=== PATIENT | male | born 1960 | race Caucasian/White ===

== ENCOUNTER 2019-06-06 09:47 | Emergency (ER) | payer OTHER, SELFPAY ==
[2019-06-06 10:00] VITALS: BP 152/95; PULSE 96; RESP 16; TEMP 36.7; O2SAT 99
--- NOTE | 2019-06-06 10:20 | ED.EYEPROB ---
HPI - Eye Problem General Chief complaint: Eye Problems Stated complaint: Pos pink eye Time Seen by Provider: 06/06/19 10:20 Source: patient Mode of arrival: ambulatory Limitations: no limitations History of Present Illness HPI Narrative: Miguel Echeverria is a 59 yo male with PMH of high cholesterol who comes to express care with left eye redness x24 hours Related Data Allergies Allergy/AdvReac Type Severity Reaction Status Date / Time oxycodone Allergy Unknown HIVES Verified 04/12/19 08:32 Review of Systems Review of Systems: Narrative: CONSTITUTIONAL: Denies fever, chills, sweats. EYES: Denies visual changes, has redness, minimal discharge. ENT: Denies rhinorrhea, congestion, sore throat, otalgia. CARDIOVASCULAR: Denies chest pain, palpitations, edema. RESPIRATORY: Denies dyspnea, wheezing, cough GASTROINTESTINAL: Denies abdominal pain, nausea, vomiting, diarrhea. GENITOURINARY: Denies dysuria, hematuria, abnormal discharge SKIN: Denies rash or itching. NEUROLOGIC: Denies numbness, or focal weakness. PSYCHIATRIC: Denies anxiety or depression. PMFSH Past Medical History Medical History GERD without esophagitis Multiple fractures of ribs, bilateral, sequela Family History Family History (Updated 06/06/19 @ 10:30 by Kyara Krishnan CNP) Other No active medical problems Social History Social History Smoking status: Former smoker Alcohol intake: current Comments At time of signature, I agree with nursing past medical, surgical, social and family history. There is no relevant family history pertinent to the presenting complaint. Exam Narrative: Exam Narrative: GENERAL: This is a well-nourished, well-developed patient, in no apparent distress. HEAD: normocephalic, atraumatic. EYES: Sclera clear/white on right ; left mildly injected. Minimal photosensitivity vision is grossly intact. EARS: External ears normal, . Hearing grossly intact. NOSE: External nose normal with no obvious nasal discharge, nares without redness, no rhinorrhea. THROAT: Mucous membranes moist, NECK: Neck supple, non-tender without lymphadenopathy, masses or thyromegaly. CARDIOVASCULAR: Regular rate and rhythm without murmurs, gallops, or rubs. RESPIRATORY: Clear to auscultation. Breath sounds equal bilaterally. No wheezes, rales, or rhonchi. GASTROINTESTINAL: Abdomen soft, SKIN: warm, intact with no suspicious lesions or rash, good texture and turgor. NEURO: awake, alert, and oriented to person, place and time. There were no obvious focal neurologic abnormalities. Steady gait EXTREMITIES: Normal range of motion. BACK: Nontender . Course Course Emergency Course: Started onpolymixin eye drops Discussed handwashing and treatment of the next 24-hour Vital Signs Vital signs: Vital Signs Temperature 98.1 F 06/06/19 10:00 Pulse Rate 96 06/06/19 10:00 Respiratory Rate 16 06/06/19 10:00 Blood Pressure 152/95 H 06/06/19 10:00 Pulse Oximetry 99 06/06/19 10:00 Temperature 98.1 F 06/06/19 10:00 Pulse Rate 96 06/06/19 10:00 Respiratory Rate 16 06/06/19 10:00 Blood Pressure 152/95 H 06/06/19 10:00 Pulse Oximetry 99 06/06/19 10:00 MDM - Eye Problem Differential Diagnosis Differential diagnosis: Likely corneal abrasion, conjunctivitis and other Discharge Plan Discharge Clinical Impression: Bacterial conjunctivitis Patient Disposition: Home, Self-Care Condition: Stable Instructions: Antibiotic Form, Conjunctivitis (ED) Prescriptions: New bacitracin-polymyxin B 500-10,000 unit/gram ointment 1 applic EACH EYE 4-6XD 10 Days Qty: 5 RF: 0 No Action atorvastatin 40 mg tablet 40 mg PO DAILY Qty: 60 RF: 0 Follow-up/Referrals: Reg Goss MD [Primary Care Provider] - Stand Alone Forms: Work/School Release IP Time of Disposition: 10:36 Discharge Date
== END 2019-06-06 10:38 | disposition home or self-care (01) ==
PROVIDERS: Emergency Provider Nurse Practitioner; PCP Family Medicine
DX: H10.9 Unspecified conjunctivitis (principal); K21.9 Gastro-esophageal reflux disease without esophagitis; Z87.891 Personal history of nicotine dependence
CPT/HCPCS: 99213; G0463

== ENCOUNTER → 2020-09-11 15:56 | Outpatient (CLI) | payer OTHER, SELFPAY ==
--- NOTE | ~2020-09-11 | US_ITS ---
US axilla LT DATE: 09/11/2020 16:14 INDICATION: Left axillary mass TECHNIQUE: Real-time and color flow imaging of the left axillary soft tissues COMPARISON: None FINDINGS: There is question of an approximately 2.2 x 3.8 cm or greater oval hyperechoic area within the left axillary soft tissues, possibly a lipoma. The sonographic findings are not conclusive. Consi john CT thorax with attention to the left axilla, with skin marker over the area of clinical complaint . A benign appearing 7.3 x 16 mm lymph node is identified in the left axilla. IMPRESSION: Possible left axillary lipoma; consider CT correlation with skin marker over the area of clinical complaint Reviewed, dictated and finalized at [facility] Reviewed, dictated and finalized at [facility]. IMPRESSION: Possible left axillary lipoma; consider CT correlation with skin ma rker over the area of clinical complaint
== END ==
PROVIDERS: PCP Family Medicine; Visit Provider Nurse Practitioner Family
DX: M79.89 Other specified soft tissue disorders (principal)
CPT/HCPCS: 76882

== ENCOUNTER 2020-10-12 10:43 | Outpatient (CLI) | payer OTHER, SELFPAY ==
--- NOTE | ~2020-10-12 | CT_ITS ---
EXAMINATION: CT diagnostic chest wo con DATE: 10/12/2020 10:57 INDICATION: Benign lipomatous neoplasm, left axilla TECHNIQUE: Computed tomography (CT) of the chest was performed without intravenous contrast. Automate d exposure control and iterative reconstruction technique were employed. Exam dose: 607.18 mGy-cm to lizandro exam DLP. COMPARISON: 05/08/2016 CT pulmonary scan 01/18/2010 CT pulmonary scan FINDINGS: Normal heart size. No hilar or mediastinal mass lesion or lymphadenopathy. No thoracic aort ic aneurysm. No pericardial or pleural effusion. Included portion of adrenal glands is normal. No axillary lymphadenopathy is evident. There is likely chronic pleural-based wedge-shaped infiltrate or scarring in the posteromedial right lower lobe in the paraspinal area, similar finding noted in this location on 05/08/2016 CT examination, likely chronic residual from extensive right lower lobe atelectasis/consolidation noted on 0 CT examination. No pulmonary infiltrate or consolidation or pulmonary mass lesion is evident otherwise. Degenerative spurring of the thoracic spine. No suspicious osteolytic or osteoblastic lesions are not ed. IMPRESSION: Probable chronic focal scarring in the posterior medial right lower lobe, stable since Reviewed, dictated and finalized at [facility]. Reviewed, dictated and finalized at [facility]. IMPRESSION: Probable chronic focal scarring in the posterior medial right lowe r lobe, stable since 05/08/2016
== END 2020-10-12 10:44 ==
PROVIDERS: PCP Family Medicine; Visit Provider Nurse Practitioner Family
DX: M79.89 Other specified soft tissue disorders (principal)
CPT/HCPCS: 71250

== ENCOUNTER 2021-05-22 18:53 | Emergency (ER) | payer OTHER, SELFPAY ==
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
[2021-05-22 19:02] VITALS: BP 132/96; PULSE 110; RESP 16; TEMP 36.3; O2SAT 100
== END 2021-05-22 19:10 | disposition home or self-care (01) ==
PROVIDERS: Emergency Provider Nurse Practitioner Family; PCP Family Medicine
DX: R22.1 Localized swelling, mass and lump, neck (principal); Y04.2XXA Assault by strike against or bumped into by another person, initial encounter; K21.9 Gastro-esophageal reflux disease without esophagitis; E78.00 Pure hypercholesterolemia, unspecified; Z86.711 Personal history of pulmonary embolism
CPT/HCPCS: 99213; G0463

== ENCOUNTER 2024-01-05 14:18 | Emergency (ER) | payer OTHER, SELFPAY ==
[2024-01-05 14:30] VITALS: BP 142/87; PULSE 104; RESP 16; TEMP 37; O2SAT 99
--- NOTE | 2024-01-05 15:27 | ED.EYEPROB ---
HPI - Eye Problem General Chief complaint: Eye Problems Stated complaint: left eye red,swollen Time Seen by Provider: 01/05/24 15:19 Source: patient and RN notes reviewed Mode of arrival: ambulatory Limitations: no limitations History of Present Illness HPI Narrative: Patient presents today complaining of redness to his left eye that was present when he woke up this morning. Believes he may have rubbed or scratched his eye while he was sleeping. Reports his vision is, ?a little glossy. ? He does not wear glasses or contacts. He is not on any aspirin or blood thinners. Related Data Allergies Allergy/AdvReac Type Severity Reaction Status Date / Time oxycodone Allergy Unknown HIVES Verified 01/05/24 14:35 Review of Systems Review of Systems: CONSTITUTIONAL: Denies body aches, fever, chills, or sweats. EYES: Denies discharge.+ left eye redness and soreness. ENT: Denies rhinorrhea, congestion, sore throat, or otalgia. CARDIOVASCULAR: Denies chest pain, palpitations, or edema. RESPIRATORY: Denies cough or dyspnea. GASTROINTESTINAL: Denies abdominal pain, nausea, vomiting, or diarrhea. GENITOURINARY: Denies dysuria or hematuria. SKIN: Denies rash, itching, or wounds. MUSCULOSKELETAL: Denies back pain, joint pain, or myalgia. NEUROLOGIC: Denies headache, numbness, tingling, or weakness. PSYCH: Denies depression or anxiety. [facility] Past Medical History Medical History BMI 30.0-30.9,adult BMI 31.0-31.9,adult GERD without esophagitis Multiple fractures of ribs, bilateral, sequela Umbilical hernia Surgical History Surgical History Hx of colonoscopy Family History Family History Father Diabetes mellitus Mother , blood clot Pneumonia Pulmonary embolism Sibling No problems noted. Other No active medical problems Social History Social History Smoking status: Former smoker Second hand tobacco smoke exposure: No Alcohol intake: current Substance use: current Substance use type: marijuana Do You Feel Safe in your Home?: Yes Lack of Transportation: No Lack of Food: Never True Current Housing: I Have Housing Concerned About Future Housing: No Difficulty Paying Gas/Electric Bills: No Difficulty Paying for Meds: No Currently Unemployed: No Education: Trade/Vocational Certificate Difficulty w/ Childcare or Family Care: No Living arrangements: alone Occupation/Education: occupation 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 Please see nursing chart for further information. There is no relevant family history pertinent to the presenting complaint Exam Narrative: GENERAL: Well-appearing, well-nourished, and in no acute distress. HEAD: Normocephalic, atraumatic. EYES: EOMI. PERRL. Right eye normal. Left eye: Large subconjunctival hemorrhage to the lateral half of the eye. Lids and lashes normal. See procedure note ENT: Mucous membranes pink and moist. NECK: Normal AROM. CHEST: No respiratory distress. EXTREMITIES: Normal range of motion. No edema. SKIN: Warm, dry, no rash. Capillary refill normal. Normal skin turgor. NEURO: No focal deficits. Alert and oriented x3. Gait steady. PSYCH: Normal affect. No signs of depression or anxiety. Course Course Level of Care: Express Care Visit Vital Signs Vital signs: Vital Signs Temperature 98.6 F 01/05/24 14:30 Pulse Rate 104 H 01/05/24 14:30 Respiratory Rate 16 01/05/24 14:30 Blood Pressure 142/87 H
[2024-01-05] MEDS: TETRACAINE HCL 0.5% OPHTH SOLN 4 ML BTL 1 DROP LEFT EYE (15:35)
[2024-01-05] MEDS: FLUORESCEIN SOD 1 MG/STRIP LEFT EYE (15:35)
== END 2024-01-05 15:46 | disposition home or self-care (01) ==
PROVIDERS: Emergency Provider Nurse Practitioner; PCP Family Medicine
DX: H11.32 Conjunctival hemorrhage, left eye (principal); X58.XXXA Exposure to other specified factors, initial encounter; Z87.891 Personal history of nicotine dependence; F12.90 Cannabis use, unspecified, uncomplicated; K21.9 Gastro-esophageal reflux disease without esophagitis
CPT/HCPCS: 99213; G0463